=== PATIENT | female | born 1925 | race Caucasian/White ===

== ENCOUNTER 2016-10-20 12:33 | Inpatient (IN) ==
[2016-10-20] MEDS ORDERED: MORPHINE IV ONE (13:42)
[2016-10-20] MEDS ORDERED: ZOFRAN IV ONE (13:42)
--- NOTE | 2016-10-20 14:29 | Diag Imaging Result Doc PS360 ---
EXAM: HEAD/C-SPINE W/O CONTRAST HISTORY: fall pain abrasion to right face TECHNIQUE: CT of the head without contrast COMMENT: There are calcifications in the vertebral and internal carotid arteries bilaterally. There is generalized cerebral and cerebellar atrophy. There is patchy lucency in the periventricular white matter bilaterally. There is encephalomalacia in the left frontoparietal cortex. No evidence of bleed or abnormal extra-axial fluid collection is present. Compared to 12/11/2015 the appearance of the brain has not changed significantly. Cervical spine: There is no evidence of fracture or subluxation. There is severe facet arthropathy on the right at C2-3 and C3-4. There is slight curvature of the lower cervical spine with convexity to the left which was also present on 12/11/2015. IMPRESSION: No evidence of acute intracranial disease. Old ischemic changes. No evidence of acute fracture or subluxation in the cervical spine. Electronically signed by Yovani Zheng 10/20/2016 2:27 PM
--- NOTE | 2016-10-20 14:46 | Diag Imaging Result Doc PS360 ---
EXAM: SHOULDER-RIGHT HISTORY: fall pain TECHNIQUE: Right shoulder two views COMMENT: There is a comminuted fracture of the proximal humerus which passes through the neck and tuberosity regions. There is no dislocation. There is generalized osteopenia. IMPRESSION: Comminuted fracture of the proximal humerus. Electronically signed by Yovani Zheng 10/20/2016 2:44 PM
--- NOTE | 2016-10-20 14:47 | Diag Imaging Result Doc PS360 ---
EXAM: HUMERUS-RIGHT HISTORY: fall pain TECHNIQUE: Right humerus one view COMMENT: There is a comminuted fracture of the proximal humerus. There is no evidence of dislocation. IMPRESSION: Fracture proximal humerus. Electronically signed by Yovani Zheng 10/20/2016 2:44 PM
--- NOTE | 2016-10-20 14:48 | Diag Imaging Result Doc PS360 ---
EXAM: FOREARM-RIGHT HISTORY: fall pain TECHNIQUE: Right forearm two views COMMENT: There is no evidence of fracture or dislocation. No other definite bony abnormalities are present. IMPRESSION: No acute disease. Electronically signed by Yovani Zheng 10/20/2016 2:45 PM
--- NOTE | 2016-10-20 14:49 | Diag Imaging Result Doc PS360 ---
EXAM: CHEST-1 VIEW HISTORY: fall TECHNIQUE: AP upright chest COMMENT: The inspiration is suboptimal. The left ventricle appears to be enlarged. There is a pacemaker on the left. There has been previous sternotomy. There is no evidence of pneumothorax. IMPRESSION: Poor inspiration. Electronically signed by Yovani Zheng 10/20/2016 2:46 PM
--- NOTE | 2016-10-20 15:15 | Diag Imaging Result Doc PS360 ---
EXAM: RIBS ONLY RIGHT INDICATION: fall pain TECHNIQUE: 3 views COMPARISON: Chest radiograph dated 11/07/2015 FINDINGS: There is no discrete rib fracture or intrinsic rib lesion. There is a right proximal humerus fracture. Please see separate right humerus and right shoulder radiograph reports, which were performed same time. There is no evidence of pneumothorax or pleural fluid collection on the right. The lung parenchyma is overexposed but there does appear to be mild atelectasis at the right lung base. IMPRESSION: 1.No discrete rib fracture. 2.Fracture of the proximal right humerus. Please see separate right humerus and right shoulder radiograph report. Electronically signed by Joel Jeffery 10/20/2016 3:13 PM
[2016-10-20] MEDS ORDERED: NORCO-5 PO ONE (15:46)
--- NOTE | 2016-10-20 16:03 | PROVIDER DOCUMENTATION ---
This chart was entered by Malcolm Mosley Scribe, acting as scribe for Zee Fonseca MD. HPI-Head Injury - General Chief Complaint: Fall Stated Complaint: FALL Time Seen by Provider: 10/20/16 13:34 Source: patient, family Allergies/Adverse Reactions: Patient Allergies Allergy/AdvReac Type Severity Reaction Status Date / Time No Known Allergies Allergy Verified 12/11/15 15:45 Home Medications: Home Medication List Medication Instructions Recorded Confirmed Last Taken Type Captopril 12.5 mg PO BID 06/21/14 11/08/15 2 Days Ago History Carvedilol 1 each PO DAILY 06/21/14 11/08/15 2 Days Ago History Cholecalciferol (Vitamin D3) 1 each PO DAILY 06/21/14 11/08/15 2 Days Ago History [Vitamin D3] Escitalopram [Lexapro] 20 mg PO DAILY 06/21/14 11/08/15 2 Days Ago History Furosemide [Lasix] 80 mg PO DAILY 06/21/14 11/08/15 2 Days Ago History Levothyroxine [Synthroid] 112 mcg PO DAILY 06/21/14 11/08/15 2 Days Ago History Multivitamin [Tab A Clive] 1 each PO DAILY 06/21/14 11/08/15 2 Days Ago History Simvastatin 20 mg PO DAILY 06/21/14 11/08/15 2 Days Ago History Acetaminophen [Mapap] 500 mg PO Q4HR 01/30/15 11/08/15 2 Days Ago History Calcium Carbonate 600 mg PO BID 01/30/15 11/08/15 2 Days Ago History Cholecalciferol (Vitamin D3) 2,000 unit PO DAILY 01/30/15 11/08/15 2 Days Ago History [Vitamin D] Ciprofloxacin [Cipro] 250 mg PO BID #14 tablet 01/30/15 11/08/15 2 Days Ago Rx Dicyclomine [Bentyl] 10 mg PO TID 01/30/15 11/08/15 2 Days Ago History Docusate Sodium 100 mg PO BID 01/30/15 11/08/15 2 Days Ago History Ferrous Sulfate 325 mg PO BID 01/30/15 11/08/15 2 Days Ago History Lorazepam 0.5 mg PO TID 01/30/15 11/08/15 2 Days Ago History Menthol/Zinc Oxide Ointment 1 applicatn TOP PRN PRN 01/30/15 11/08/15 2 Days Ago History [Calmoseptine Ointment] [place]/M-Blue/[place]/Na Phos/Hyos 1 each PO TID 01/30/15 11/08/15 2 Days Ago History [Ustell Capsule] Niacinamide [Niacin] 500 mg PO DAILY 01/30/15 11/08/15 2 Days Ago History Polyethylene Glycol 3350 [Miralax] 17 gm PO DAILY 01/30/15 11/08/15 2 Days Ago History Potassium Chloride 10 meq PO DAILY 01/30/15 11/08/15 2 Days Ago History Spironolactone 12.5 mg PO DAILY 01/30/15 11/08/15 2 Days Ago History Tramadol/APAP [Ultracet 1 each PO Q4H PRN PRN 01/30/15 11/08/15 2 Days Ago History 37.5MG/325Mg] Nitrofurantoin Macrocrystal 100 mg PO BID #20 capsule 08/23/15 11/08/15 2 Days Ago Rx [Nitrofurantoin] Cephalexin [Keflex] 500 mg PO TID #20 capsule 11/07/15 11/08/15 2 Days Ago Rx - History of Present Illness-Head Injury Nature of Presenting Problem: Patient is a 89 y/o F that presents to the ER via EMS post fall. Patient lost balance falling down, she struck right side of head and right arm. Denies any pelvic pain, chest wall pain, or leg pain. She had no LOC. unable to move right arm Head Injury Location: reports: temporal (right) Other injuries associated with incident:: reports: RUE Quality of Pain: reports: dull, throbbing Severity: reports: moderate Onset/Duration: reports: abrupt, this morning Timing: reports: still present, constant Method of Injury: reports: fell Any recent trauma/injury?: reports: none Loss of Consciousness: no loss of consciousness Modifying Factors: worse with: movement Injury Associated Symptoms: reports: arm pain, joint pain. denies: back/neck pain, dizziness, headaches, shortness of breath, vomiting Locality of Occurance: Home Similar Symptoms Previously?: No Recently seen or treated by another doctor?: No Review of Systems - Adult - REVIEW OF SYSTEMS - ADULT Constitutional: reports: no symptoms reported Eyes: denies: decreased vision, blurred vision, double vision Ears, Nose, Mouth & Throat: reports: no symptoms reported Cardiovascular: denies: chest pain, palpitations, syncope Respiratory: denies: hemoptysis, pleurisy, shortness of breath Gastrointestinal: denies: abdominal pain, nausea, vomiting Genitourinary: reports: no symptoms reported Musculoskeletal: reports: bone pain, joint pain. denies: back pain, neck pain Integumentary: reports: other (abrasion) Neurological: denies: dizziness/vertigo, headache/migraines Psychiatric: reports: no symptoms reported Endocrine: reports: no symptoms reported Hematologic/Lymphatic: reports: no symptoms reported Allergic/Immunologic: reports: no symptoms reported All Other Systems: Reviewed and Negative Past History - Adult - PAST MEDICAL HISTORY-ADULT Review of Records: reports: Old Records Reviewed, Nursing Assessment Review, Medications Reviewed Cardiovascular: reports: arrhythmia (hx sick sinus syndrome), HTN, heart valve problem (artificial heart valve), hyperlipidemia Gastrointestinal: reports: diverticulosis Genitourinary: reports: chronic UTI's, other (naurogenic bladder) Neurological: reports: spinal cord/brain injury (subdural) Psychiatric: reports: anxiety, depression Endocrine/Immune: reports: thyroid disorder (hypothyroidism) - PRIOR SURGERIES/PROCEDURES Surgical/Procedure History: reports: cholecystectomy, cardiac stent, pacemaker ( 2012), hysterectomy, bowel surgery (bowel resection), orthopedic (extremity) ( left rotator cuff repair), other (roxana holes for subdural hematoma 2009) - IMMUNIZATION STATUS Childhood Immunizations: See Nurse Assessment Flu Vaccine: See Nurse Assessment - FAMILY HISTORY Family History: reviewed, not pertinent - SOCIAL HISTORY Smoking: non-smoker Living Situation: family Physical Exam- Neurological - Physical Exam-Neuro Initial Vital Signs Reviewed: Yes General Appearance: alert, mild distress Eye Exam: bilateral eye: normal inspection, PERRL HENMT: moist mucous membranes, normal ENT inspection, pharynx normal Head Injury: ecchymosis (right temporal). negative: Noel's Sign Neck: non-tender, full range of motion, normal inspection Respiratory: chest non-tender, lungs clear, normal breath sounds, no respiratory distress, no accessory muscle use Cardiovascular: no edema, no murmur, bradycardia Abdominal Exam: normal bowel sounds, non tender, soft Extremity: no calf tenderness, normal capillary refill, pelvis stable, tenderness (right arm with decrease ROM) team otr truck driver Exam: normal hearing, normal speech, PERRL Motor/Sensory: no motor deficit, no sensory deficit Neurologic: team otr truck driver II-XII nml as tested, no motor/sensory deficits Integumentary: warm/dry, abrasion(s) (right temporal region) Psych/Mental Status: normal mood/affect, normal thought content, normal thought process, oriented x 3 - Glascow Coma Scale Best Eye Response: (4) open spontaneously Best Verbal Response: (5) oriented Best Motor Response: (6) obeys commands Total Glascow Score: 15 Progress - PLAN OF CARE/RESULTS Progress/Plan/Lab Results: Vital Signs - 8 hr 10/20/16 12:58 10/20/16 15:00 Temperature 98.3 F Pulse Rate 59 L 60 Respiratory Rate 16 Blood Pressure 153/46 163/53 O2 Sat by Pulse Oximetry 97 100 Orders Category Date Time Status Arm Sling DIRECTED Care 10/20/16 15:46 Active IV Insertion ORDERED Care 10/20/16 15:51 Active CHEST-1 VIEW [RAD] Stat Exams 10/20/16 13:42 Completed FOREARM-RIGHT [RAD] Stat Exams 10/20/16 13:42 Completed HEAD/C-SPINE W/O CONTRAST [CT] Stat Exams 10/20/16 13:42 Completed HUMERUS-RIGHT [RAD] Stat Exams 10/20/16 13:42 Completed SHOULDER-RIGHT [RAD] Stat Exams 10/20/16 13:42 Completed CBC WITH DIFF [HEME] Stat Lab 10/20/16 15:51 Uncollected COMPREHENSIVE METABOLIC PANEL [CHEM] Stat Lab 10/20/16 15:51 Uncollected UA [URINALYSIS W/POSS RFLX CULT-1] [URINALYSIS] Stat Lab 10/20/16 15:51 Uncollected Hydrocodone/APAP 5 mg/325 mg [[place]-5] Med 10/20/16 15:46 Discontinued 1 each PO NOW ONE Morphine Med 10/20/16 13:42 Discontinued 2 mg IV NOW ONE Ondansetron [Zofran] Med 10/20/16 13:42 Discontinued 4 mg IV NOW ONE - XRAY 1 XRAY: Right XRAY Study: Shoulder, Humerus Impression: Abnormal XRAY Interpretation: proximal comminuted fx of humerus 2 XRAY: Right XRAY Study: Forearm Impression: Normal XRAY Interpretation: nad 3 XRAY Study: Chest Impression: Abnormal XRAY Interpretation: poor inspiration 4 XRAY: Right XRAY Study: Ribs Impression: Normal XRAY Interpretation: nad - CT/MRI 1 CT Study: Cervical Spine, Head Impression: Normal CT Results: Nad on head or c-spine - CONSULTS/PCP/HOSPITALIST Notification #1 *Consult/PCP/Hospitalist*: Time Discussed: 15:54 Reason/Comments: admit Consult Disposition: Admit Departure - Departure Date of Disposition Decision: 10/20/16 Time of Disposition Decision: 15:59 DIAGNOSIS: Intractable pain Fall Qualifiers: Encounter type: initial encounter Qualified Code(s): W19.XXXA - Unspecified fall, initial encounter Proximal humerus fracture Qualifiers: Encounter type: initial encounter Fracture type: closed Fracture morphology: other fracture Fracture alignment: nondisplaced Laterality: right Qualified Code (s): S42.294A - Other nondisplaced fracture of upper end of right humerus, initial encounter for closed fracture Head injury Qualifiers: Encounter type: initial encounter Qualified Code(s): S09.90XA - Unspecified injury of head, initial encounter Disposition: ADMITTED INPATIENT 09 Certified Medical Emergency: Emergent Condition: Stable Referrals and Follow-Ups: Lori Love MD [Primary Care Provider] - - Critical Care Note This patient required my direct & personal management of CC.: No This chart was documented by the indicated scribe, (Malcolm Mosley, Scribe) and accurately reflects the services I performed and decisions made by me, Zee Fonseca MD, as attested by the provider's signature.
[2016-10-20 16:50] LABS: MANUAL DIFF NEEDED? NO
[2016-10-20 16:57] LABS: BASO% 0.4 % (0.0-0.8); EOS# 0.08 X1000 (0.0-0.7); EOS% 0.8 % (0.0-10.0); HEMATOCRIT 35.5 % (37.0-47.0); HEMOGLOBIN 11.4 g/dL (12.0-16.0); LYMPH# 0.96 X1000 (1.2-3.4); LYMPH% 9.3 % (20.5-51.1); MCH 31.5 PG (27-31); MCHC 32.1 g/dL (33-37); MCV 98.1 FL (81-99); MONO% 5.8 % (1.7-9.3); MPV 10.2 FL (7.4-10.4); NEUT% 83.7 % (42.2-75.2); PLT 204 X1000 (130-400); RBC 3.62 XMIL (4.2-5.4)
[2016-10-20 17:18] LABS: AGAP 13; ALBUMIN 3.9 g/dL (3.5-5.0); ALKALINE PHOSPHATASE 63 U/L (32-104); BUN 17 mg/dL (8-22); CHLORIDE 99 mmol/L (98-107); COSMO 287; GOT 13 U/L (10-30); GPT 9 U/L (10-36); POTASSIUM 4.1 mmol/L (3.5-5.1); SODIUM 142 mmol/L (136-145); TCO2 30 mmol/L (25-35); TOTAL BILIRUBIN 0.48 mg/dL (0.20-1.00); TOTAL PROTEIN 6.2 g/dL (6.3-8.3)
[2016-10-20] MEDS ORDERED: ATIVAN PO PRN (18:31)
[2016-10-20] MEDS ORDERED: CALMOSEPTINE OINTMENT TOP PRN (18:31)
[2016-10-20] MEDS: MORPHINE IV PRN ×2 (19:48→22:18)
--- NOTE | 2016-10-20 21:57 | HISTORY AND PHYSICAL ---
CHIEF COMPLAINT: Fall. HISTORY OF PRESENT ILLNESS: Ms. Craft is an 89-year-old female who has been a resident of an assisted living facility locally here in [place], was brought in to the emergency department after she had a fall at 11:30 a.m. this morning. According to the patient, she was trying to go to the dining room from her room when she fell and injured her right upper extremity. She denies having any other complaints. She does have a history of being a poor historian. PAST MEDICAL/SURGICAL HISTORY: 1. Hypertension. 2. Dyslipidemia. 3. Impaired fasting glucose. 4. Hypothyroidism. 5. Anxiety disorder. 6. Ischemic cardiomyopathy with left ventricular ejection fraction estimated at 50% on previous echocardiogram. Status post CABG and a single venous graft to LAD on 2008 at [facility]. 7. 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 Walt Gonzalez. 8. There is also history of subdural hematoma after a fall in November 2009. 9. There is history of for rotator cuff surgery. 10. Cholecystectomy. 11. Hysterectomy. SOCIAL HISTORY: Patient has never smoked tobacco nor does she drink any alcohol. She is retired and is a resident of an assisted living facility. Her daughter is the main next of kin. FAMILY HISTORY: Noncontributory. ALLERGIES: No known drug allergies reported. CURRENT HOME MEDICATIONS: 1. Captopril 12.5 mg orally twice daily. 2. Carvedilol 3.125 mg orally twice daily. 3. Vitamin B12 1000 mcg intramuscularly twice a month. 4. Dicyclomine 10 mg 3 times a day as needed for stomach cramps. 5. Docusate sodium 100 mg orally twice daily. 6. Escitalopram 20 mg orally once daily. 7. Ferrous sulfate 325 mg orally once daily. 8. Furosemide 80 mg orally once daily. 9. Levothyroxine 125 mcg orally once daily. 10. [place] 7.5 mg every 4 hours as needed for pain. 11. Lorazepam 0.5 mg orally 3 times a day as needed for anxiety. 12. MiraLAX 17 g orally once daily. 13. Omeprazole 20 mg orally once daily in the morning. 14. Multivitamin orally once daily. 15. Quetiapine 50 mg orally once daily at bedtime. 16. Simvastatin 20 mg orally once daily at bedtime. 17. Spironolactone 25 mg half tablet once daily in the morning. 18. Ultracet 1 tablet every 4 hours as needed for pain. 19. Vitamin D3 2000 units orally once daily. 20. Calcium carbonate 600 mg orally twice daily. REVIEW OF SYSTEMS: A full review of system could not be obtained since patient is a poor historian. PHYSICAL EXAMINATION: VITAL SIGNS: Temperature 98.3 degrees, pulse 60 per minute, blood pressure 134/ 40, respiratory rate 16 per minute, pulse ox 91% on room air. GENERAL: Patient is alert and oriented x3. She does not appear to be in any acute distress at this time. HEENT: Within normal limits, except for bruising in her right eye in the supraorbital area. NECK: Supple without any local tenderness. LYMPH NODES: There is no lymphadenopathy noted in the neck or axillary regions. CHEST: Chest wall is nontender. CARDIOVASCULAR: System first and second heart sounds are audible without any murmurs or gallops. RESPIRATORY: No respiratory distress noted. Bilateral lung air entry is moderately decreased, but there are no rales or rhonchi present on auscultation. GASTROINTESTINAL: Abdomen is nondistended. It is soft and nontender on palpation and normal bowel sounds are present. MUSCULOSKELETAL: Right upper extremity is noted to be in a sling. It is tender with movement in the right upper arm area. Also, there is right supraorbital area bruising, but no other trauma noted. Bilateral lower extremities are mobile and also there is decreased range of motion in most of her joints because of osteoarthritis. PSYCHIATRIC: Normal affect noted. GENITOURINARY: Deferred. NEUROLOGIC: No focal deficits are present. DIAGNOSTIC DATA/IMAGING: CBC shows hemoglobin of 11.4, hematocrit 35.5. The rest of the CBC is nondiagnostic. She does have history of mild anemia in the past. Chemistry shows glucose of 132. Rest of the comprehensive metabolic panel is nondiagnostic. CT scan of the head and C-spine was obtained at the emergency room and that did not find any acute fracture or bleed. Chest x-ray was negative for any acute infiltrate and there were also no rib fractures. Right forearm x-rays did not show any acute fracture or dislocation. Right shoulder and right upper arm x-rays showed comminuted fracture of proximal humerus. IMPRESSION: 1. Fall with generalized weakness and intractable pain in the right upper extremity secondary to comminuted fracture of the proximal humerus. 2. Multiple comorbid conditions, including advanced age, coronary artery disease , hypertension, hypothyroidism, and history of impaired fasting glucose. PLAN: Patient will be admitted to the hospital as inpatient and we are going to give her morphine sulfate 2 mg IV q.2 hours as needed. That has already been started at the emergency room. The patient was in severe pain and morphine sulfate has tremendously helped her so far. We will also give her Zofran 4 mg IV q.4 hours as needed for nausea and vomiting and continue most of her medications. I am also going to obtain Orthopedic consultation and I think Dr. Raya has already been contacted from the emergency department. Further recommendations regarding the right humeral fracture will be as per Orthopedics. I am also going to consult Import Manager and Case Management on the floor not to help us in the discharge process ultimately since the patient will need some rehabilitation, and also I mentioned that to the patient's family that she is no longer a candidate for assisted living facility and therefore will need a permanent placement in a penitentiary facility. cc: Lori Love MD MTDD
[2016-10-20] MEDS: SEROQUEL PO SCH (22:11)
[2016-10-20] MEDS: COLACE PO SCH (22:11)
[2016-10-20] MEDS: CAPOTEN PO SCH (22:11)
[2016-10-20] MEDS: FERROUS SULFATE PO SCH (22:12)
[2016-10-20] MEDS: CALTRATE 600 PO SCH (22:12)
--- NOTE | 2016-10-21 04:40 | CONSULTATION ---
DATE OF CONSULTATION: 10/20/2016 CHIEF COMPLAINT: Right shoulder pain. CLINICAL HISTORY: The patient is a pleasant, 89-year-old female who is status post fall, sustaining immediate pain and discomfort in her right shoulder. The patient lost her balance and fell, striking the right side of her head and right upper extremity. She denies any loss of consciousness. She has significant pain and discomfort in the right upper extremity. She has pain with any gentle movement of the right upper extremity. X-rays were obtained and revealed a right comminuted proximal displaced humeral fracture. Orthopedic consultation was requested. PHYSICAL EXAMINATION: General: Patient is awake, alert, and cooperative with the examination. HEENT: Had small ecchymosis on the right periorbital region. She is awake, alert, and cooperative with the examination. Musculoskeletal: Patient's right upper extremity, sling was in place. She has diffuse swelling of the right shoulder and upper arm. She had significant tenderness to palpation, tenderness with gentle movement. Compartments are soft. Able to flex all her fingers. Good capillary refill distally. Cervical spine is nontender to palpation. The left shoulder has good passive range of motion. She has a well-healed incisional scar. She has smooth articulation. She has significant weakness and unable to actively forward elevate her arm, which is chronic with inability to actively forward flex her left shoulder. She is grossly neurovascularly intact to her left upper extremity. She is able to flex and extend her fingers. PAST MEDICAL HISTORY: Significant for hypertension, hypercholesterolemia, hypothyroidism, diverticulosis, sick sinus syndrome, status post pacemaker placement, depression , and anxiety. PAST SURGICAL HISTORY: Pacemaker placed in 2012, hysterectomy, mitral valve replaced, status post left reverse shoulder arthroplasty, benign mass removed from the colon in 2012, cholecystectomy, bowel resection in 2009, subdural hematoma in 2009, cardiac stent x1. DIAGNOSTIC DATA: X-rays were reviewed of her right comminuted, displaced proximal humeral fracture. IMPRESSION: Right displaced, comminuted proximal humeral fracture. PLAN: At this point, I discussed treatment options with the patient and family. At this time, the patient will maintain her sling. We will give her medication for pain. The patient and family understand that there is some displacement of the fracture. Will discuss further with Dr. Love with regards to treatment plan. The patient and family would like some time to think about this and will await decision for nonoperative versus operative treatment. All questions were answered. cc: MD Lori Davila MD MTDD
[2016-10-21 06:32] LABS: MANUAL DIFF NEEDED? NO
[2016-10-21 06:37] LABS: BASO% 0.5 % (0.0-0.8); EOS# 0.08 X1000 (0.0-0.7); EOS% 1.3 % (0.0-10.0); HEMATOCRIT 33.5 % (37.0-47.0); HEMOGLOBIN 10.7 g/dL (12.0-16.0); LYMPH# 1.16 X1000 (1.2-3.4); MCH 31.6 PG (27-31); MCHC 31.9 g/dL (33-37); MCV 98.8 FL (81-99); MONO# 0.37 X1000 (0.11-0.59); MONO% 6.1 % (1.7-9.3); MPV 10.8 FL (7.4-10.4); NEUT% 73.1 % (42.2-75.2); PLT 177 X1000 (130-400); RBC 3.39 XMIL (4.2-5.4)
[2016-10-21] MEDS: SYNTHROID PO SCH (06:40)
[2016-10-21 07:11] LABS: AGAP 13; BUN 19 mg/dL (8-22); CALCIUM 9.2 mg/dL (8.8-10.2); CHLORIDE 100 mmol/L (98-107); COSMO 278; POTASSIUM 4.2 mmol/L (3.5-5.1); SODIUM 138 mmol/L (136-145); TCO2 25 mmol/L (25-35)
[2016-10-21] MEDS: BENTYL PO SCH ×3 (09:39→18:04)
[2016-10-21] MEDS: MIRALAX PO SCH (09:39)
[2016-10-21] MEDS: COLACE PO SCH ×2 (09:39→21:59)
[2016-10-21] MEDS: THERA M PLUS PO SCH (09:39)
[2016-10-21] MEDS: LEXAPRO PO SCH (09:39)
[2016-10-21] MEDS: ZOCOR PO SCH (09:39)
[2016-10-21] MEDS: CALTRATE 600 PO SCH ×2 (09:39→21:59)
[2016-10-21] MEDS: VITAMIN D PO SCH (09:39)
[2016-10-21] MEDS: FERROUS SULFATE PO SCH ×2 (09:40→21:59)
[2016-10-21] MEDS: CAPOTEN PO SCH ×2 (09:43→21:59)
[2016-10-21] MEDS: LASIX PO SCH (09:43)
[2016-10-21] MEDS: ALDACTONE PO SCH (09:44)
--- NOTE | 2016-10-21 11:29 | PROGRESS NOTE ---
DATE: 10/21/2016 SUBJECTIVE: Patient is an 89-year-old female who is 1 day status post fall sustaining a right proximal humeral fracture. She rested well through the night. She is currently in an envelope sling. PHYSICAL EXAMINATION: On examination of the right upper extremity, she has diffuse swelling and diffuse tenderness to palpation on the proximal humerus. Compartments are soft. She is able to flex all of her fingers. She is grossly neurovascularly intact. IMPRESSION: Right proximal humeral fracture. PLAN: At this point, I discussed the treatment options with the patient and family. They had some time to think about it overnight, and the patient does not wish to proceed with surgical management at this time. Will maintain her in her sling. She will be restricted from any weightbearing through the right upper extremity which will limit her mobilizations, and she uses a walker for ambulation. Will begin transfers from [id number]. All of her questions were answered, and the patient's family agreeable with treatment plan. cc: MD Lori Davila MD MTDD
[2016-10-21] MEDS: SEROQUEL PO SCH (21:59)
[2016-10-22 01:22] LABS: URINE CULTURE NEEDED? NO; URINE MICRO REVIEW NEEDED? NO; URINE SOURCE CLEAN CATCH
[2016-10-22 01:51] LABS: BILIRUBIN URINE NEGATIVE (NEGATIVE); BLOOD URINE NEGATIVE (NEGATIVE); COLOR YELLOW; GLUCOSE URINE NEGATIVE (NEGATIVE); LEUKOCYTES URINE NEGATIVE (NEGATIVE); NITRITE URINE NEGATIVE (NEGATIVE); PROTEIN URINE NEGATIVE (NEGATIVE); TURBIDITY URINE CLEAR (CLEAR); UR EPITHELIAL CELLS <10 /HPF (<10); URINE BACTERIA NEGATIVE /HPF; URINE RBC <10 /HPF (<10); URINE WBC <10 /HPF (<10); UROBILINOGEN URINE NORMAL (NORMAL)
[2016-10-22] MEDS: SYNTHROID PO SCH (06:04)
--- NOTE | 2016-10-22 07:17 | PROGRESS NOTE ---
DATE: 10/22/2016 SUBJECTIVE: The patient is an 89-year-old female who is 2 days status post fall, sustaining a right proximal humeral fracture. She rested well through the night. She currently has an envelope sling. PHYSICAL EXAMINATION: The patient's right upper extremity, sling is in place and is fitting well. She continues with expected diffuse swelling about the shoulder. She has diffuse tenderness to palpation. She is grossly neurovascularly intact. Good capillary refill distally. DIAGNOSTIC DATA: Hemoglobin is 10.7, hematocrit is 33.5. IMPRESSION: Right proximal humeral fracture. PLAN: At this point, we will continue with the envelope sling. The patient and family have elected to proceed with nonoperative treatment. manager managed backup services have been consulted for discharge planning for inpatient rehabilitation. Patient will be nonweightbearing to the right upper extremity and will be maintained in the envelope sling. We will obtain a repeat x-ray in 3 weeks. cc: MD Lori Davila MD
[2016-10-22] MEDS: CAPOTEN PO SCH ×2 (09:41→22:14)
[2016-10-22] MEDS: LEXAPRO PO SCH (09:42)
[2016-10-22] MEDS: THERA M PLUS PO SCH (09:42)
[2016-10-22] MEDS: LASIX PO SCH (09:43)
[2016-10-22] MEDS: BENTYL PO SCH ×3 (09:43→17:35)
[2016-10-22] MEDS: COLACE PO SCH ×2 (09:44→22:14)
[2016-10-22] MEDS: VITAMIN D PO SCH (09:44)
[2016-10-22] MEDS: FERROUS SULFATE PO SCH ×2 (09:44→22:14)
[2016-10-22] MEDS: CALTRATE 600 PO SCH ×2 (09:44→22:13)
[2016-10-22] MEDS: ZOCOR PO SCH (09:44)
[2016-10-22] MEDS: MIRALAX PO SCH (09:45)
[2016-10-22] MEDS: ALDACTONE PO SCH (09:45)
[2016-10-22] MEDS: MORPHINE IV PRN ×2 (10:21→15:36)
[2016-10-22] MEDS: SEROQUEL PO SCH (22:14)
[2016-10-23] MEDS: ZOFRAN IV PRN ×3 (01:38→18:13)
--- NOTE | 2016-10-23 09:03 | PROGRESS NOTE ---
DATE: 10/23/2016 SUBJECTIVE: The patient is an 89-year-old female who is 3 days status post fall, sustaining a right comminuted displaced proximal humeral fracture. The patient and family have changed their minds and have decided to proceed with surgical management of the right upper extremity, with recommendation for a right reverse shoulder arthroplasty offered. PHYSICAL EXAMINATION: The patient's right upper extremity has diffuse swelling and diffuse tenderness to palpation. Tenderness to gentle movement. She is grossly neurovascularly intact. IMPRESSION: Right displaced comminuted proximal humeral fracture. PLAN: At this point, we will plan on proceeding with a right reverse shoulder arthroplasty. Risks and benefits of surgery were explained, including the risks of anesthesia, , bleeding, infection, failure to relieve pain, postoperative stiffness, nerve injury, blood clots, and other imponderables. All questions were answered. Patient and family wished to proceed with surgery. I did discuss with Dr. Love and he agrees with treatment plan. cc: MD Lori Davila MD
[2016-10-23] MEDS: MORPHINE IV PRN (09:08)
[2016-10-23] MEDS: SYNTHROID PO SCH (09:33)
[2016-10-23] MEDS: VITAMIN D PO SCH (09:33)
[2016-10-23] MEDS: THERA M PLUS PO SCH (09:34)
[2016-10-23] MEDS: MIRALAX PO SCH (09:34)
[2016-10-23] MEDS: LEXAPRO PO SCH (09:34)
[2016-10-23] MEDS: ZOCOR PO SCH (09:34)
[2016-10-23] MEDS: BENTYL PO SCH ×3 (09:35→17:11)
[2016-10-23] MEDS: CAPOTEN PO SCH ×2 (09:35→21:53)
[2016-10-23] MEDS: LASIX PO SCH (09:35)
[2016-10-23] MEDS: FERROUS SULFATE PO SCH (09:35)
[2016-10-23] MEDS: CALTRATE 600 PO SCH ×2 (09:35→21:46)
[2016-10-23] MEDS: COLACE PO SCH ×2 (09:35→21:46)
[2016-10-23] MEDS: ALDACTONE PO SCH (09:36)
[2016-10-23] MEDS ORDERED: DIPRIVAN 1% ONE (11:31)
[2016-10-23] MEDS ORDERED: SODIUM CHLORIDE 0.9% 10 ML ONE ×2 (11:35→12:09)
[2016-10-23] MEDS ORDERED: NEOSPORIN G.U. IRRIGANT ONE (11:41)
[2016-10-23] MEDS ORDERED: VANCOMYCIN ONE (11:41)
[2016-10-23] MEDS ORDERED: CYKLOKAPRON 1,000 MG/NS 1,000 MG/100 ML IVPB ONE (11:46)
[2016-10-23] MEDS ORDERED: SODIUM CHLORIDE 0.9% ONE (11:46)
[2016-10-23] MEDS ORDERED: SENSORCAINE 0.25%/EPI 1:200,000 ONE (11:46)
[2016-10-23] MEDS ORDERED: DURAMORPH ONE (11:46)
[2016-10-23] MEDS ORDERED: TORADOL ONE (11:46)
[2016-10-23] MEDS ORDERED: EXPAREL 1.3% ONE (11:47)
[2016-10-23] MEDS ORDERED: KEFZOL 1 GM/D5W 1 GM/50 ML IVPB ONE (11:49)
[2016-10-23] MEDS ORDERED: NORCURON ONE (12:09)
[2016-10-23 13:42] LABS: URINE MICRO REVIEW NEEDED? NO; URINE SOURCE CATH
[2016-10-23] MEDS ORDERED: ROBINUL ONE (13:49)
[2016-10-23 13:50] LABS: BILIRUBIN URINE NEGATIVE (NEGATIVE); BLOOD URINE SMALL (NEGATIVE); COLOR YELLOW; GLUCOSE URINE NEGATIVE (NEGATIVE); LEUKOCYTES URINE LARGE (NEGATIVE); NITRITE URINE POSITIVE (NEGATIVE); PH URINE 5.5; PROTEIN URINE TRACE mg/dL (NEGATIVE); SP GRAVITY URINE 1.014; TURBIDITY URINE HAZY (CLEAR); UROBILINOGEN URINE NORMAL (NORMAL)
[2016-10-23 13:51] LABS: UR EPITHELIAL CELLS <10 /HPF (<10); URINE BACTERIA 4+ /HPF; URINE RBC <10 /HPF (<10); URINE WBC TNTC /HPF (<10)
--- NOTE | 2016-10-23 15:27 | Diag Imaging Result Doc PS360 ---
EXAM: SHOULDER 1 VIEW RIGHT HISTORY: Right total shoulder TECHNIQUE: COMPARISON: 10/20/2016 FINDINGS: The patient has undergone replacement of the right shoulder since the prior exam. There is good positioning of the prosthesis of the humeral shaft and glenoid. No separation at the acromioclavicular joint. IMPRESSION: Good positioning following orthopedic placement of the right shoulder. Electronically signed by Ankit Alas 10/23/2016 3:25 PM
[2016-10-23] MEDS ORDERED: NS 1,000 ML ONE (15:33)
[2016-10-23] MEDS ORDERED: MORPHINE IV PRN (15:41)
[2016-10-23] MEDS ORDERED: ZOFRAN IV PRN (15:41)
[2016-10-23] MEDS ORDERED: HALDOL IV PRN (15:41)
[2016-10-23] MEDS ORDERED: MILK OF MAGNESIA PO PRN (15:41)
[2016-10-23] MEDS: NS 1,000 ML IV SCH (15:50)
[2016-10-23] MEDS: TYLENOL PO SCH ×2 (16:00→23:46)
[2016-10-23] MEDS: OXY IR PO PRN (18:08)
[2016-10-23] MEDS ORDERED: CYKLOKAPRON 1,000 MG in NS 100 ML IV ONE (18:20)
[2016-10-23] MEDS: SEROQUEL PO SCH (21:46)
[2016-10-23] MEDS: PERIDEX MT SCH (21:53)
[2016-10-24] MEDS: OXY IR PO PRN ×2 (00:36→16:41)
[2016-10-24 06:34] LABS: HEMATOCRIT 30.6 % (37.0-47.0); HEMOGLOBIN 9.9 g/dL (12.0-16.0)
[2016-10-24 06:51] LABS: AGAP 15; BUN 23 mg/dL (8-22); CALCIUM 8.3 mg/dL (8.8-10.2); CHLORIDE 99 mmol/L (98-107); COSMO 274; POTASSIUM 4.8 mmol/L (3.5-5.1); SODIUM 135 mmol/L (136-145); TCO2 21 mmol/L (25-35)
--- NOTE | 2016-10-24 06:54 | PROGRESS NOTE ---
DATE: 10/24/2016 SUBJECTIVE: The patient is a pleasant 89-year-old female who is 1 day status post right reverse total shoulder arthroplasty for proximal humeral fracture. She is currently resting comfortably this morning. She is confused however. PHYSICAL EXAMINATION: The patient is cooperative with the exam. On right upper extremity, dressing is intact. She has expected swelling. She is able to flex all of her fingers. She is grossly neurovascularly intact. Her hemoglobin and hematocrit is pending. IMPRESSION: Postop day #1 status post right reverse total shoulder arthroplasty. PLAN: At this point, discussed treatment options with the patient and family. At this time, we will change her dressing. General I Farmworker has been consulted for discharge planning for inpatient rehabilitation. We will progress with passive range of motion of the right shoulder at rehab. cc: MD Lori Davila MD
[2016-10-24] MEDS: SYNTHROID PO SCH (07:47)
[2016-10-24] MEDS: BENTYL PO SCH ×3 (09:40→21:32)
[2016-10-24] MEDS: ALDACTONE PO SCH (09:40)
[2016-10-24] MEDS: FERROUS SULFATE PO SCH (09:40)
[2016-10-24] MEDS: LEXAPRO PO SCH (09:41)
[2016-10-24] MEDS: VITAMIN D PO SCH (09:41)
[2016-10-24] MEDS: CAPOTEN PO SCH ×2 (09:42→21:31)
[2016-10-24] MEDS: ZOCOR PO SCH (09:42)
[2016-10-24] MEDS: MIRALAX PO SCH (09:43)
[2016-10-24] MEDS: THERA M PLUS PO SCH (09:43)
[2016-10-24] MEDS: TYLENOL PO SCH ×3 (09:43→21:31)
[2016-10-24] MEDS: PERIDEX MT SCH ×2 (09:43→21:32)
[2016-10-24] MEDS: CALTRATE 600 PO SCH ×2 (09:43→21:32)
[2016-10-24] MEDS: LASIX PO SCH (09:44)
[2016-10-24] MEDS: LEVAQUIN 500 MG/D5W 500 MG/100 ML IVPB IV SCH (10:03)
[2016-10-24] MEDS: NS 1,000 ML IV SCH (16:48)
[2016-10-24] MEDS: COLACE PO SCH (21:31)
[2016-10-24] MEDS: SEROQUEL PO SCH (21:32)
[2016-10-25] MEDS: TYLENOL PO SCH ×4 (02:39→22:39)
[2016-10-25] MEDS: NS 1,000 ML IV SCH ×4 (02:39→16:22)
[2016-10-25 06:01] LABS: HEMATOCRIT 28.8 % (37.0-47.0); HEMOGLOBIN 8.9 g/dL (12.0-16.0)
[2016-10-25] MEDS: SYNTHROID PO SCH (06:09)
[2016-10-25] MEDS: PERIDEX MT SCH ×2 (09:06→22:37)
[2016-10-25] MEDS: MIRALAX PO SCH (09:06)
[2016-10-25] MEDS: BENTYL PO SCH ×3 (09:06→16:17)
[2016-10-25] MEDS: LEXAPRO PO SCH (09:07)
[2016-10-25] MEDS: CALTRATE 600 PO SCH ×2 (09:07→20:40)
[2016-10-25] MEDS: ALDACTONE PO SCH (09:07)
[2016-10-25] MEDS: ZOCOR PO SCH (09:07)
[2016-10-25] MEDS: FERROUS SULFATE PO SCH (09:07)
[2016-10-25] MEDS: VITAMIN D PO SCH (09:07)
[2016-10-25] MEDS: OXY IR PO PRN ×2 (09:08→16:22)
[2016-10-25] MEDS: THERA M PLUS PO SCH (09:09)
[2016-10-25] MEDS: CAPOTEN PO SCH ×2 (09:11→20:43)
[2016-10-25] MEDS: LASIX PO SCH (09:11)
[2016-10-25] MEDS: LEVAQUIN 500 MG/D5W 500 MG/100 ML IVPB IV SCH (09:12)
[2016-10-25] MEDS ORDERED: MAGNESIUM SULFATE 2 GM/S.W.I. 2 GM/50 ML IVPB IV ONE (09:59)
[2016-10-25] MEDS ORDERED: TUCKS PADS TOP PRN (09:59)
[2016-10-25] MEDS ORDERED: LIORESAL PO ONE (10:10)
[2016-10-25] MEDS ORDERED: TUMS EXTRA STRENGTH PO ONE (10:10)
--- NOTE | 2016-10-25 11:14 | PROGRESS NOTE ---
DATE: 10/25/2016 PRIMARY CARE PHYSICIAN: Dr. Lori Love. SUBJECTIVE: Overnight, the patient complains of right lower extremity cramping, left lower extremity toe dorsiflexion with pain at the distal hamstring in the anterior azul. Otherwise, within normal limits. No additional complaints noted. OBJECTIVE: Vital Signs showed the patient's improved p.o. intake. Temperature 99.3 degrees, pulse 61, respirations 14. Blood pressure 113/33. O2 97% on 2 L nasal cannula. PHYSICAL EXAMINATION: General: Patient is in moderate distress. Bruising that is well healing on the right side of the face along with right-sided sling in good position and providing no extreme discomfort.HEENT: OP is clear. Moist mucous membranes. Nares patent. Neck: Supple. No JVD. Lungs: Clear to auscultation anteriorly. Cardiac: Are regular rate and rhythm. No murmurs noted. Abdomen: Protuberant, mildly distended. Bowel sounds scant but present lower. Extremities: As noted, left lower extremity with acute dorsiflexion, extreme plantar flexion with inability to dorsiflex and extreme muscular tension at the distal popliteal fossa. LABORATORY DATA: Hemoglobin and hematocrit of 8.9 and 28.8. Chemistry 135, sodium with CO2 of 21. Creatinine 0.8, glucose 111. Calcium slightly low at 8.3. Reports of PTH specimen is pending Shoulder x-ray at noted. ASSESSMENT AND PLAN: An 89-year-old white female, postoperative day #2, status post right reverse shoulder total arthroplasty. 1. Hypocalcemia with cramping. We will replete with magnesium and calcium. Provide 1 dose of baclofen and p.r.n. topical witch Shreya to the area. Aggressive PT and movement to be planned. 2. Anemia, post operative. Continue to monitor. Transfuse if below 8.0. 3. Postop day 2, shoulder arthroplasty. Medications for pain provided per ortho with good effect. No issues or complaints at this time. We will follow daily. cc: MD Lori Copeland MD
[2016-10-25] MEDS: COLACE PO SCH (20:40)
[2016-10-25] MEDS: SEROQUEL PO SCH (22:38)
[2016-10-26] MEDS: TYLENOL PO SCH ×4 (00:24→22:50)
[2016-10-26] MEDS: SYNTHROID PO SCH (06:28)
[2016-10-26] MEDS: NS 1,000 ML IV SCH ×2 (06:36→22:48)
[2016-10-26 07:10] LABS: MANUAL DIFF NEEDED? NO
[2016-10-26 07:14] LABS: BASO% 0.4 % (0.0-0.8); EOS# 0.27 X1000 (0.0-0.7); EOS% 3.3 % (0.0-10.0); HEMATOCRIT 28.3 % (37.0-47.0); HEMOGLOBIN 8.9 g/dL (12.0-16.0); LYMPH# 0.71 X1000 (1.2-3.4); LYMPH% 8.8 % (20.5-51.1); MCH 31.3 PG (27-31); MCHC 31.4 g/dL (33-37); MCV 99.6 FL (81-99); MONO# 0.48 X1000 (0.11-0.59); MONO% 5.9 % (1.7-9.3); NEUT% 81.6 % (42.2-75.2); PLT 219 X1000 (130-400); RBC 2.84 XMIL (4.2-5.4)
[2016-10-26 07:29] LABS: AGAP 14; ALBUMIN 2.6 g/dL (3.5-5.0); ALKALINE PHOSPHATASE 51 U/L (32-104); BUN 14 mg/dL (8-22); CHLORIDE 102 mmol/L (98-107); COSMO 281; GOT 27 U/L (10-30); GPT 16 U/L (10-36); POTASSIUM 3.2 mmol/L (3.5-5.1); SODIUM 140 mmol/L (136-145); TCO2 24 mmol/L (25-35); TOTAL PROTEIN 5.4 g/dL (6.3-8.3)
[2016-10-26 07:37] LABS: CALCIUM 8.3 mg/dL (8.8-10.2); MAGNESIUM 2.3 mg/dL (1.5-2.7); TOTAL BILIRUBIN 0.62 mg/dL (0.20-1.00)
[2016-10-26] MEDS ORDERED: KLOR-CON PO ONE (08:03)
--- NOTE | 2016-10-26 09:43 | PROGRESS NOTE ---
DATE: 10/26/2016 CLINICAL HISTORY: The patient is 4 days status post right reverse total shoulder arthroplasty for a fracture. The patient still experienced some confusion. OBJECTIVE: On physical exam, she is cooperative to the exam this morning. Her wound looks good. There are no signs or symptoms of infection. She is grossly neurovascularly intact. Able flex to extend all of her fingers. Her hemoglobin and hematocrit are 8.9 and 28.3. IMPRESSION: Postoperative day #4, status post right reverse total shoulder arthroplasty for fracture. PLAN: At this point, the patient is stable from an orthopedic standpoint. Anticipate discharge to rehab tomorrow. Will proceed with range of motion exercise of the right shoulder at that time. cc: MD Lori Davila MD
[2016-10-26] MEDS: PERIDEX MT SCH ×3 (10:03→22:49)
[2016-10-26] MEDS: MIRALAX PO SCH (10:03)
[2016-10-26] MEDS: ALDACTONE PO SCH (10:04)
[2016-10-26] MEDS: ZOCOR PO SCH (10:04)
[2016-10-26] MEDS: VITAMIN D PO SCH (10:04)
[2016-10-26] MEDS: FERROUS SULFATE PO SCH (10:05)
[2016-10-26] MEDS: THERA M PLUS PO SCH (10:05)
[2016-10-26] MEDS: LEXAPRO PO SCH (10:05)
[2016-10-26] MEDS: BENTYL PO SCH ×3 (10:05→17:44)
[2016-10-26] MEDS: CAPOTEN PO SCH ×3 (10:06→22:49)
[2016-10-26] MEDS: LASIX PO SCH (10:07)
[2016-10-26] MEDS: PHOSLO PO SCH ×2 (13:32→17:44)
[2016-10-26] MEDS: LEVAQUIN 500 MG/D5W 500 MG/100 ML IVPB IV SCH (15:24)
[2016-10-26] MEDS: OXY IR PO PRN (17:46)
[2016-10-26] MEDS: SEROQUEL PO SCH ×2 (19:39→22:49)
[2016-10-26] MEDS: COLACE PO SCH (22:50)
[2016-10-27] MEDS: NS 1,000 ML IV SCH ×2 (01:31→06:00)
--- NOTE | 2016-10-27 03:48 | PROGRESS NOTE ---
DATE: 10/26/2016 PRIMARY CARE PHYSICIAN: Dr. Lori Love. SUBJECTIVE: Overnight, the patient had some difficulty with urination. Bladder was scanned. She 146 mL present in the bladder. made aware, and had some dressing changes. Complaints regarding lower extremity cramping are mildly relieved at this time. OBJECTIVE: Vital signs: Temperature 99.4 degrees, Pulse 61. Respirations 18. Blood pressure 146/39. O2 saturation 98% on 2 L nasal cannula. In's and Out's with large volume Nicole output unmeasured as of yesterday are inconsistent. Patient is still eating approximately 25% of meals. PHYSICAL EXAMINATION: Elderly female, mild to moderate distress, right upper extremity in an immobilized sling, status post surgery. The patient is warm to the touch.CV: Regular rate. No murmurs, gallops or rubs. Pulses are slightly bounding. Lungs: Clear to auscultation anteriorly. No rhonchi. No wheezes noted. Extremities: Lower extremities, no cyanosis, clubbing or edema. Abdomen: Soft, nontender, nondistended. Bowel sounds positive. Neurologic: Cranial nerves 2-12 are grossly intact. LAB STUDIES: Both labs show that the patient has a WBC of 8.7 with a hemoglobin and hematocrit of 8.9 and 28.3, consistent with prior exam. MCH of 31.3. Chemistry shows low potassium at 3.2, anion gap of 14, glucose 111-124. Calcium slightly low as well at 8.3 with a phosphorus of 1.8, magnesium 2.3. Total protein was microbiology urine growth. ASSESSMENT AND PLAN: The patient is an 89-year-old white female with, 1. Hypocalcemia, hypophosphatemia. We will replete. Continue to monitor. 2. Anemia postoperative. Continue to check daily CBCs. Plans transfuse if patient falls below 8. 3. Postop day 3, shoulder arthroplasty. Pain medication evaluated. The patient should be well on continuing the current dose. 4. Electrolytes will be repleted today. The patient will be continued on IV fluids, and the combination of p.o. calcium, p.o. phosphorus, and we will follow in the a.m. The patient will likely be staying until transferred to Dr. Love's service on Thursday. cc: MD Lori Copeland MD
[2016-10-27] MEDS: SYNTHROID PO SCH (06:01)
[2016-10-27 06:38] LABS: MANUAL DIFF NEEDED? NO
[2016-10-27 07:04] LABS: AGAP 11; BUN 11 mg/dL (8-22); CALCIUM 8.4 mg/dL (8.8-10.2); CHLORIDE 102 mmol/L (98-107); COSMO 279; MAGNESIUM 1.9 mg/dL (1.5-2.7); POTASSIUM 3.3 mmol/L (3.5-5.1); SODIUM 140 mmol/L (136-145); TCO2 27 mmol/L (25-35)
[2016-10-27 07:35] LABS: BASO% 0.3 % (0.0-0.8); EOS# 0.27 X1000 (0.0-0.7); EOS% 3.6 % (0.0-10.0); HEMATOCRIT 29.8 % (37.0-47.0); HEMOGLOBIN 9.3 g/dL (12.0-16.0); LYMPH# 0.79 X1000 (1.2-3.4); LYMPH% 10.5 % (20.5-51.1); MCH 31.8 PG (27-31); MCHC 31.2 g/dL (33-37); MCV 102.1 FL (81-99); MONO# 0.59 X1000 (0.11-0.59); MONO% 7.8 % (1.7-9.3); MPV 9.6 FL (7.4-10.4); NEUT% 77.8 % (42.2-75.2); PLT 180 X1000 (130-400); RBC 2.92 XMIL (4.2-5.4)
--- NOTE | 2016-10-27 07:47 | DISCHARGE SUMMARY ---
ADMISSION DATE: 10/20/2016 DISCHARGE DATE: 10/27/2016 DISCHARGE DIAGNOSES: 1. Fall with right proximal humeral fracture with subsequent reverse total arthroplasty done by Dr. Danelle Raya. 2. Coronary artery disease. 3. Hypertension. 4. Hypothyroidism. 5. Impaired fasting glucose. 6. History of anxiety disorder. HOSPITAL COURSE: Ms. Craft is an 89-year-old female who was transferred from the assisted living facility, where she was residing, and brought into the emergency department after she had a fall. She sustained injury to her right upper extremity that was causing her to have intractable pain. She was diagnosed as having proximal humeral fracture, and was admitted for further evaluation and care. Orthopedic consultation was obtained with Dr. Raya, who initially recommended her to have surgery, but the patient was initially reluctant, but after 2 days of admission, they proceeded with the surgery and did reverse total right shoulder arthroplasty. The patient's condition has been stable, and she has done well since surgery. She is going to be transferred to rehab since she will need some time for rehabilitation because of her advanced age and generalized weakness. DISCHARGE MEDICATIONS: 1. Captopril 12.5 mg orally twice daily. 2. Carvedilol 3.125 mg orally twice daily. 3. Vitamin B12, 1000 mcg intramuscularly twice a month. 4. Dicyclomine 10 mg 3 times a day as needed for stomach cramps. 5. Docusate sodium 200 mg orally once daily. 6. Escitalopram 20 mg orally once daily. 7. Ferrous sulfate 325 mg orally once daily. 8. Furosemide 80 mg orally once daily in the morning. 9. Spironolactone 12.5 mg orally once daily in the morning. 10. Levothyroxine 125 mcg orally once daily. 11. Percocet 7.5 mg orally every 6 hours as needed for pain. 12. Lorazepam 0.5 mg orally 3 times a day as needed for anxiety. 13. Omeprazole 20 mg orally once daily in the morning. 14. Multivitamin orally once daily. 15. Seroquel 50 mg orally once daily at bedtime. 16. Simvastatin 20 mg orally once daily at bedtime. 17. Vitamin D3, 2000 units orally once daily. 18. Calcium carbonate 600 mg orally twice daily. FOLLOWUP: She will follow up with me at the office in approximately 2 weeks, and follow with Dr. Raya in 3 weeks. CONDITION: Stable. DISPOSITION: Rehabilitation facility. TIME SPENT: A total of more than 40 minutes were spent during the discharge process. cc: MD CYNDY Jenkins
[2016-10-27] MEDS: BENTYL PO SCH ×2 (09:35→12:51)
[2016-10-27] MEDS: THERA M PLUS PO SCH (09:35)
[2016-10-27] MEDS: LEXAPRO PO SCH (09:35)
[2016-10-27] MEDS: PHOSLO PO SCH ×2 (09:35→12:51)
[2016-10-27] MEDS: TYLENOL PO SCH (09:35)
[2016-10-27] MEDS: VITAMIN D PO SCH (09:35)
[2016-10-27] MEDS: LASIX PO SCH (09:35)
[2016-10-27] MEDS: ZOCOR PO SCH (09:35)
[2016-10-27] MEDS: FERROUS SULFATE PO SCH (09:35)
[2016-10-27] MEDS: CAPOTEN PO SCH (09:36)
[2016-10-27] MEDS: ALDACTONE PO SCH (09:36)
[2016-10-27] MEDS: MIRALAX PO SCH (09:36)
[2016-10-27] MEDS: LEVAQUIN 500 MG/D5W 500 MG/100 ML IVPB IV SCH (09:54)
[2016-10-27] MEDS: PERIDEX MT SCH (11:52)
[2016-10-27 11:53] VITALS: BP 109/38
--- NOTE | 2016-11-09 11:53 | OPERATIVE NOTE ---
PROCEDURE DATE: 10/23/2016 PREOPERATIVE DIAGNOSIS: Right displaced proximal humeral fracture. POSTOPERATIVE DIAGNOSIS: Right displaced proximal humeral fracture. PROCEDURE PERFORMED: Right reverse total shoulder arthroplasty with DePuy Delta XTEND size 8 cemented stem with a standard humeral epiphysis, a 42, +9 humeral cup, a 42 eccentric Glenosphere, and a standard Metaglene. SURGEON: Evaristo Raya MD. HYDRAULIC TECHNICIAN: Quoc Rodríguez. SECOND SHEET METAL WORKER SUPERVISOR: Jalen Lopez RN. ANESTHESIA: General. ESTIMATED BLOOD LOSS: 350 mL. COMPLICATIONS: None. INDICATION: The patient is a pleasant, 89-year-old female who is 3 days status post fall, sustaining a right comminuted displaced proximal humeral fracture. She presented to the emergency room. X-rays were obtained that revealed the fracture. She was admitted to the hospital per Dr. Love. After review of the films, a recommendation to proceed with a right reverse shoulder arthroplasty was offered. The patient and family wished to proceed with surgical management. Risks and benefits of surgery were explained, including the risks of anesthesia, , bleeding, infection, failure to relieve pain, postoperative stiffness, nerve injury, blood clots, and other imponderables. All questions were answered. Patient and family wished to proceed with surgery. DETAILS OF OPERATION: The patient was taken to the operating room and placed supine on the operating table. Once adequate anesthesia was obtained, the patient was placed in a semi-Forbes beach-chair position. The right shoulder was subsequently prepped and draped in the usual sterile fashion. A standard deltopectoral incision was made with a skin knife. Hemostasis was obtained using electrocautery. The deltopectoral interval was then developed. The Ramos retractor was then placed. The fracture site was then identified. Debridement was then conducted. The proximal humeral head was excised along with soft tissue. The displaced fracture fragments of the lesser and greater tuberosities were excised as well. After this had been performed, attention was then turned to the glenoid. Retractors were then placed. Circumferential dissection was then performed with a deep knife. After that had been performed, a guide was then placed on the glenoid and a guide pin was placed. Reaming was then conducted. The central hole was then dilated. Copious irrigation was then performed with antibiotic pulsatile lavage. The wound was copiously irrigated. A standard Metaglene was then impacted into position. Three locking screws were placed and one nonlocking screw. There appeared to be good stable fixation. The wound was copiously irrigated once again. A 42 eccentric Glenosphere was then placed. Eccentricity was placed inferiorly. After that had been performed, attention was then turned to the proximal humerus. Reaming was then conducted. A trial stem was then placed to determine the appropriate height. After that had been performed, vancomycin was mixed with cement on back table. Copious irrigation was then performed with antibiotic pulsatile lavage in the intramedullary canal. The cement was then impacted into the intramedullary canal. A size 8 Delta XTEND cemented stem was then impacted in position. The stem was then impacted in position and held. Excess cement was removed with a [place]. After the cement had cured, trial cups were then placed. A 42, +9 humeral cup had excellent stability and range of motion. Trial cup was removed. A 42, +9 humeral cup was then placed. The shoulder was reduced, carried through a range of motion, and had good range of motion and good stability. Exparel was placed in the deep soft tissue as well as subcutaneous tissue. Copious irrigation was then performed once again with antibiotic pulsatile lavage. Then 2-0 Vicryl was used to repair the subcutaneous tissue followed by running 2-0 Prolene. The patient tolerated the procedure well. No complications. She was transferred to the recovery room in stable condition. Running 2-0 Prolene was then placed. Benzoin and Steri-Strips were applied. Adaptic, sterile ABD pad, and tape were applied to the right shoulder, followed by a shoulder immobilizer. All counts were correct. Patient tolerated the procedure well and was transferred to the recovery room in stable condition. cc: MD Lori Davila MD
== END 2016-10-27 15:49 ==
LOC: 4N 12:33 → ED 12:33 → OBSVTOIN 16:49
PROVIDERS: ADMIT Internal Medicine; ATTEND Internal Medicine